=== PATIENT | male | born 1970 | race Two or more races ===

== ENCOUNTER 2024-11-26 21:49 | Inpatient (IN) | payer BC, SELFPAY ==
[2024-11-26 21:50] VITALS: BMI 29.5
[2024-11-26 22:13] VITALS: BP 145/82; PULSE 82; RESP 16; TEMP 37.7; O2SAT 98
--- NOTE | 2024-11-26 22:22 | XR_ITS ---
Examination: Abdomen sonogram, Limited Date and time of exam: November 26, 2024, 10:26 PM INDICATIONS: Epigastric pain beginning 2 days ago Technique: Real-time hinkle scale transabdominal sonographic images of the upper abdomen obtained. Findings: Gallbladder sludge and stones Gallbladder wall 0.5 cm Common bile duct 0.3 cm Pancreatic head 2.6 cm Liver 12.2 cm fatty infiltration Normal hepatopedal portal venous flow Patent IVC IMPRESSION: Acute calculus cholecystitis
--- NOTE | 2024-11-26 22:22 | XR_ITS ---
Examination: CT abdomen and pelvis without contrast. Coronal 3-D reconstructions. Sagittal 2-D reconstructions. Date and time of exam:November 26, 2024 10:52 PM Comparison April 03, 2018 INDICATIONS: Onset abdominal pain vomiting beginning 3 days ago. CTDI: vol (mGy): 8.35 DLP: (mGycm): 543 Technique: Axial images of the abdomen have been obtained, 3 mm slice thickness Intravenous contrast material has not been administered. Low dose protocols were performed. One or more of the following dose reduction techniques were used; automated exposure control, adjustment of the mA and/or KV according to patient size, use of iterative reconstruction technique. Findings: Gallstones, gallbladder wall appears thickened No splenic pancreatic or adrenal mass No renal or ureteral calculi No pericecal inflammatory change No bowel obstruction or diverticulitis No prostatomegaly Bladder intact IMPRESSION: Findings suspicious for acute calculus cholecystitis, consider HIDA scan or MRCP for confirmation
--- NOTE | 2024-11-26 22:23 | PD.EDABDPN ---
ED Abdominal Pain RME/HPI General Chief Complaint: Abdominal Pain Stated complaint: ABD PAIN, VOMITING X 3DAYS Time seen by provider: 11/26/24 22:21 Arrival date/time: 11/26/24 21:49 54M with history of HTN presents to ED with several days of RUQ/epigastric/flank pain and N/V. Possible dysuria, but no hematuria. No diarrhea. Limitations: no limitations Related Data Home Medications ?Medication ?Instructions ?Recorded ?Confirmed benazepril 10 mg tablet 1 tab PO QDAY 09/06/21 05/17/23 Previous Rx's ?Medication ?Instructions ?Recorded docusate sodium 100 mg capsule 100 mg PO BID #40 caps 05/18/23 (Colace) hydrocodone 7.5 mg-acetaminophen 1 tab PO Q8H PRN pain (scale score 05/18/23 325 mg tablet 7-10) #10 tabs ibuprofen 600 mg tablet 600 mg PO Q8H PRN pain (scale 05/18/23 score 4-6) #15 tabs Allergies Allergy/AdvReac Type Severity Reaction Status Date / Time No Known Allergies Allergy Verified 05/18/23 06:31 Review of Systems Review of Systems Systems Reviewed: All systems reviewed, normal except as documented Constitutional Constitutional: Reports system reviewed and no additional complaints, except as documented, Denies fever(s) and Denies headache(s) ENT Ears, Nose, Mouth, and Throat: Denies disequilibrium and Denies headache(s) Cardiovascular Cardiovascular: Reports system reviewed and no additional complaints, except as documented, Denies chest pain and Denies dyspnea Respiratory Respiratory: Reports system reviewed and no additional complaints, except as documented, Denies cough and Denies dyspnea Gastrointestinal Gastrointestinal: Reports system reviewed and no additional complaints, except as documented, Reports as per HPI, Reports abdominal pain, Reports nausea and Reports vomiting Genitourinary Genitourinary: Reports as per HPI and Reports dysuria Neurologic Neurologic: Reports system reviewed and no additional complaints, except as documented, Denies confusion, Denies disequilibrium and Denies headache(s) Psychiatric Psychiatric: Denies confusion Past Medical History Past Medical History NEUROLOGIC: Negative Neurological Disorders or Seizures CARDIAC: Positive Cardiac Disorders and Hypertension; Negative Congestive Heart Failure RESPIRATORY: Negative Chronic Obstructive Pulmonary Disease (COPD) or Asthma GASTROINTESTINAL: Positive Gastrointestinal Disorders and Hemorrhoids (SURGERY IN 2019); Negative Hepatitis or Colorectal Cancer GENITOURINARY: Negative Genitourinary Disorders, Renal Disease or Prostate Cancer REPRODUCTIVE: Negative Fibroids or Testicular Cancer MUSCULOSKELETAL: Negative Musculoskeletal Disorders, Bone Cancer or Carpal Tunnel Syndrome ENDOCRINE: Negative Endocrine Disorders, Diabetes Mellitus Type 1 or Diabetes Mellitus Type 2 HEMATOLOGIC: Negative Blood Disorders or Sickle Cell Disease OTHER HISTORY: Positive Chicken Pox, Measles and Mumps; Negative Hospitalization, Autoimmune Disease, Shingles, Falls, Blood Transfusions, Blood Transfusion Reaction, Anesthesia Reactions, Organ Transplant, MRSA, VRSA, Cancer, Colorectal Cancer, Lung Cancer, Prostate Cancer or Testicular Cancer Family History FAMILY HISTORY: Positive Family Cardiac Disorders (brother-hx of htn) and Family Cancer (PARENTS OF LUNG CA); Negative Family Psychiatric Problems, Family Respiratory Disorders, Family Gastrointestinal Problems, Family Surgery or Family Anesthesia Reaction Surgical History SURGICAL: Positive Abdominal Surgery; Negative Nephrectomy, Transurethral Resection, Joint Replacement, Amputation, Open Reduction Internal Fixation, Arthroscopy, Brain Shunt, Vasectomy or Organ Transplant Social History SMOKING STATUS: Never smoker ED Exam General Limitations: Present no limitations General appearance: Present alert and in no apparent distress Head Head exam: Present atraumatic Eye Eye exam: Present normal appearance, PERRL and EOMI ENT ENT exam: Present normal exam, normal oropharynx and mucous membranes moist Neck Neck exam: Present normal inspection, full ROM and trachea midline Chest Chest inspection: Present normal inspection and symmetric chest wall rise Respiratory Respiratory exam: Present normal lung sounds bilaterally Cardiovascular Cardiovascular exam: Present regular rate, normal rhythm and normal heart sounds Abdominal Exam Abdominal exam: Present soft and normal bowel sounds Abdominal tenderness: Present RUQ, epigastrium and mild Extremities Exam Extremities exam: Present normal inspection and full ROM Back Exam Back exam: Present normal inspection and full ROM Neurological Exam Neurological exam: Present alert, oriented X3 and CN II-XII intact Psychiatric Psychiatric exam: Present normal affect and normal mood Skin Skin exam: Present warm, dry, intact and normal color Course Quality Measures none Orders Category Date Time Status Admit to Inpatient Status Routine Admission 11/27/24 13:20 Active Insert IV NOW Care 11/26/24 23:58 Active MRI Screening NOW Care 11/26/24 23:59 Active NPO NOW Care 11/26/24 23:59 Active Consult to General Surgery Stat Cons 11/27/24 12:29 Ordered Diet NPO (NOW) Diet 11/26/24 23:[address] abdomen pelvis wo con Stat Exams 11/26/24 22:22 Completed MR MRCP Stat Exams 11/27/24 00:00 Completed US gall bladder Stat Exams 11/26/24 22:22 Completed Alcohol, Blood Medical Stat Lab 11/26/24 23:09 Completed Blood Culture (Lab) Stat Lab 11/27/24 13:10 Received CBC Stat Lab 11/26/24 23:09 Completed CMP [Comprehensive Metabolic Panel] Stat Lab 11/26/24 23:09 Completed Drug Screen,Urine Stat Lab 11/27/24 00:13 Completed Lactate (Lactic Acid) Stat Lab 11/26/24 23:09 Completed Lipase Stat Lab 11/26/24 23:09 Completed Procalcitonin Stat Lab 11/26/24 23:09 Completed Urinalysis, C/S if Indicated Stat Lab 11/27/24 00:13 Completed Morphine Inj Med 11/27/24 01:45 Discontinued 5 mg IVP Q4H PRN Ondansetron Inj [Zofran Inj] Med 11/27/24 01:45 Active 4 mg IV Q4H PRN Piper/Tazo 3.375 gm Premix [Zosyn] Med 11/26/24 23:58 Discontinued 3.375 gm in 50 ml IV X1 Piper/Tazo Inj [Zosyn Inj] 4.5 gm Med 11/27/24 12:29 Discontinued Sodium Chloride 0.9% (Pop) [NS 0.9% mini bag] 100 ml IV STAT Ringers Lactated 1000 ml [Lactated Ringers] 1,000 ml Med 11/26/24 23:59 Discontinued IV 999 mls/hr Vital Signs Vital signs: Vital Signs Temperature 100 F 11/26/24 22:13 Pulse Rate 82 11/26/24 22:13 Respiratory Rate 16 11/26/24 22:13 Blood Pressure 145/82 H 11/26/24 22:13 Pulse Oximetry (%) 98 11/26/24 22:13 Oxygen Delivery Method Room Air 11/26/24 22:13 O2 at 98% on RA and WNLs Abdominal Pain MDM MDM Narrative MDM Narrative:: 54M with history of HTN presents to ED with several days of RUQ/epigastric/flank pain and N/V. Possible dysuria, but no hematuria. No diarrhea. Physical exam reveals mild RUQ/epigastric tenderness. Patient is afebrile, calm, and alert. CT and US suggests acute calculus cholecystitis. CBD normal, but bili mildly elevated. LFTs and lipase normal. Moderate leukocytosis. Alcohol/tox screen neg. Care signed out to Dr. Watkins pending MRCP and dispo. MRCP no CBD stone. Patient eventually admitted for surgery. Patient data External records reviewed:: [facility] previous records Clinical information provided by:: patient Social determinants that could affect healthcare access:: none Patient has the following chronic illnesses:: HTN How is presenting disease/condition affected by chronic disease/condition?: uneffected by Evaluation data The following diagnostics were reviewed and interpreted by me:: lab results and radiology exam(s) Lab and/or radiology exams considered but not ordered:: ordered Interpretation Summary: above Medications / Prescriptions Medications or Prescriptions considered but not ordered:: ordered Medication administrations:: Medication Administration History Acetaminophen (Acetaminophen 325 Mg Tablet) 650 mg PO Q6H PRN PRN Reason: Fever >101.5 or pain 1-3 Stop: 12/27/24 14:24 Hydrocodone Bitart/Acetaminophen (Hydrocodone/Apap 5/325 Tablet) 1 tab PO Q4HR PRN PRN Reason: PAIN SCALE 4-6 (Moderate Stop: 12/02/24 13:45 Piperacillin/Tazobactam/Dextrose (Zosyn) 3.375 gm in 50 mls @ 12.5 mls/hr IV Q8HR AWILDA Stop: 12/04/24 21:59 Morphine Sulfate (Morphine Sulf Inj 10 Mg/Ml Vial) 2 mg IVP Q4HR PRN PRN Reason: PAIN SCALE 7-10 (Severe Stop: 12/02/24 13:45 Last Admin: 11/27/24 15:49 Dose: 2 mg Documented By: LEE Ondansetron HCl (Ondansetron Inj 2 Mg/Ml Inj 2 Ml) 4 mg IV Q4H PRN; Protocol PRN Reason: nausea/vomiting Stop: 12/27/24 01:44 Last Admin: 11/27/24 08:57 Dose: 4 mg Documented By: Admin: 11/27/24 02:03 Dose: 4 mg Documented By: LUCIO Discontinued Medications Piperacillin/Tazobactam/Dextrose (Zosyn) 3.375 gm in 50 mls @ 100 mls/hr IV X1 ONE Stop: 11/27/24 00:27 Last Infusion: 11/27/24 00:50 Dose: Infused Documented By: Admin: 11/27/24 00:19 Dose: 100 mls/hr Documented By: LUCIO Lactated Ringer's (Lactated Ringers) 1,000 mls @ 999 mls/hr IV .Q1H1M ONE Stop: 11/27/24 00:59 Last Infusion: 11/27/24 01:26 Dose: Infused Documented By: Admin: 11/27/24 00:19 Dose: 999 mls/hr Documented By: LUCIO Piperacillin Sod/Tazobactam (Sod 4.5 gm/ Sodium Chloride) 100 mls @ 200 mls/hr IV STAT STA Stop: 11/27/24 12:58 Last Infusion: 11/27/24 13:52 Dose: Infused Documented By: Admin: 11/27/24 13:18 Dose: 200 mls/hr Documented By: HILLARY Morphine Sulfate (Morphine Sulf Inj 10 Mg/Ml Vial) 5 mg IVP Q4H PRN PRN Reason: pain 4-6 Stop: 12/02/24 01:44 Last Admin: 11/27/24 08:58 Dose: 5 mg Documented By: Admin: 11/27/24 02:03 Dose: 5 mg Documented By: LUCIO Morphine Sulfate (Morphine Sulf Inj 10 Mg/Ml Vial) 2 mg IVP Q4HR PRN PRN Reason: PAIN SCALE 4-10(Mod-Sev Stop: 12/02/24 13:45 above Consultations Consultation(s) initiated? (list below): Yes Diagnosis Differential diagnosis abdominal pain: abdominal pain, acute appendicitis, calculus of kidney, constipation, diverticulitis, gastroenteritis, pancreatitis, small bowel obstruction and other (biliary disease) Most likely diagnosis given after review of the tests above:: cholecystitis Admission Indicated Admission indicated?: indicated Admission Request Was there a request for admission?: Yes Admission Attestation Admission request attestation: Discussed case with [] from Hospitalist service regarding admission. Discussed patients ED course, exam findings, labs, and radiology results. The Hospitalist [agrees,declines] to accept the patient for admission. Disposition Plan Disposition Plan: Admit Discharge Plan Plan Patient Disposition: Admit Acute Care w/in Hospital Problem List Clinical Impression: Acute calculous cholecystitis
[2024-11-26 23:15] LABS: Lactate (Lactic Acid) 1.0 mMol/L (0.4-2.0)
[2024-11-26 23:16] LABS: Basophils # (Auto) 0.0 Thou/mm3 (0.0-0.2); Basophils % (Auto) 0 % (0-2.5); Eosinophils # (Auto) 0.1 Thou/mm3 (0.0-0.5); Eosinophils % (Auto) 1 % (0-10); Hematocrit 45.0 % (41.0-53.0); Hemoglobin 16.0 g/dL (13.5-16.0); Immature Granulocytes Auto 0.11 Thou/mm3 (0.00-0.00); Lymphocytes # (Auto) 2.5 Thou/mm3 (1.0-4.8); Lymphocytes % (Auto) 16 % (10-50); Mean Corpuscular HGB Conc 35.6 g/dl (31.0-37.0); Mean Corpuscular Hemoglobin 30.5 pg (25.0-35.0); Mean Corpuscular Volume 86 fL (80-100); Monocytes # (Auto) 1.6 Thou/mm3 (0.0-0.8); Monocytes % (Auto) 10 % (0-12); Neutrophils # (Auto) 11.1 Thou/mm3 (1.8-7.7); Neutrophils % (Auto) 72 % (37-80); Nucleated Red Blood Cell # 0.00 Thou/mm3 (0.00-0.00); Nucleated Red Blood Cell % 0 /100 WBC (0); Platelet Count 230 Thou/mm3 (140-440); RDW Standard Deviation 38.1 fL (35.1-43.9); Red Blood Count 5.25 Miln/mm3 (4.50-5.90); White Blood Count 15.4 Thou/mm3 (3.8-10.6)
[2024-11-26 23:55] LABS: Alanine Aminotransferase 42 U/L (10-49); Albumin, Serum 4.7 gm/dL (3.5-5.0); Albumin/Globulin Ratio 1.6 (1.2-2.2); Alcohol, Blood Medical < 3.0 mg/dL (0-10.0); Alkaline Phosphatase 98 U/L (46-116); Anion Gap 11 (7-16); Aspartate Amino Transferase 23 U/L (0-34); BUN/Creatinine Ratio 12 Ratio (12-20); Bilirubin,Total 1.4 mg/dL (0.3-1.2); Blood Urea Nitrogen 12 mg/dL (9-23); Calcium 9.9 mg/dL (8.3-10.6); Calcium (Corrected) 9.9 mg/dL (8.5-10.1); Carbon Dioxide 25.5 mMol/L (20.0-31.0); Chloride 101 mMol/L (98-107); Creatinine (Component) 1.0 mg/dL (0.6-1.3); Estimated Creatinine Clearance 85.4 mL/min (>60); Globulin 3.0 gm/dL (2.3-3.5); Glucose 123 mg/dL (74-106); Lipase 36 U/L (12-53); Osmolality,Calculated 274 (275-295); Potassium 3.5 mMol/L (3.4-5.1); Procalcitonin 0.13 ng/ml (0.0-0.49); Sodium 137 mMol/L (136-145); Total Protein 7.7 gm/dL (5.7-8.2); eGFR > 60 See Note
--- NOTE | 2024-11-27 | XR_ITS ---
MRI abdomen, without contrast. MRCP Date and time of exam: November 27, 2024, 0823 hrs. Indications: Epigastric pain nausea vomiting beginning yesterday Technique: Multiple axial and coronal images of the abdomen have been obtained with the Siemens 1.5T MRI scanner. Images obtained included T1 weighted transverse images, T2-weighted transverse images, T2-weighted transverse images fat-suppressed, T2 weighted haste fat suppressed transverse images, T1 weighted images, in and out of phase images, T2-weighted coronal images, breath hold, T2 weighted haze coronal images as well as T2 weighted coronal thick slab images, MRCP. Findings: No focal liver lesions. Gallbladder wall is thickened with edema. Small gallstones. Common hepatic duct common bile duct are not enlarged no stones. No pancreatitis. Spleen is not enlarged. No hydronephrosis No ascites Impression: Acute calculus cholecystitis
[2024-11-27] MEDS: PIPER/TAZO 3.375 GM PREMIX 3.375 GM/50 ML BAG IV ×2 (00:19→21:23)
[2024-11-27] MEDS: RINGERS LACTATED 1000 ML 1,000 ML 999 ML IV (00:19)
[2024-11-27 00:23] VITALS: BP 125/84; PULSE 83; RESP 16; TEMP 36.9; O2SAT 95
[2024-11-27 00:58] LABS: Collection Type, Urine Clean Catch; Squamous Epithelial Cell,Urine 0 /hpf (0-5)
[2024-11-27 01:12] LABS: Amphetamine/Methamp Scrn,U Negative (Negative); Barbiturate Screen,Urine Negative (Negative); Benzodiazepines Screen,Urine Negative (Negative); Benzoylecgonine Screen, Ur Negative (Negative); Fentanyl Screen,Urine Negative (Negative); Opiate Screen,Urine Negative (Negative); THC Screen,Urine Negative (Negative)
[2024-11-27 01:18] LABS: Bacteria,Urine Rare; Bilirubin,Urine Negative (Negative); Blood,Urine 1+ (Negative); Clarity,Urine Clear (Clear/Hazy); Color,Urine Yellow (Lt Yel-Yel); Culture Indicated,Urine Not Indicated; Glucose, Urine Negative (Negative); Ketones,Urine 2+ (Negative); Leukocyte Esterase,Urine Negative (Negative); Nitrite,Urine Negative (Negative); PH,Urine 6.0 (5.0-7.0); Protein,Urine Trace (Neg - Trace); RBC,Urine 5 /hpf (0-3); Specific Gravity,Urine 1.031 (1.001-1.035); Urobilinogen,Urine Negative mg/dL (0.0-1.0); WBC,Urine 2 /hpf (0-5)
[2024-11-27] MEDS: MORPHINE SULF INJ 10 MG/ML VIAL 5 MG IVP ×2 (02:03→08:58)
[2024-11-27] MEDS: ONDANSETRON INJ 2 MG/ML INJ 2 ML 4 MG IV ×3 (02:03→21:22)
[2024-11-27 04:11] VITALS: BP 134/70; PULSE 64; RESP 16; TEMP 36.8; O2SAT 96
--- NOTE | 2024-11-27 08:20 | PC.NURSE ---
PT TAKEN TO MRI.
[2024-11-27 08:53] VITALS: BP 128/82; PULSE 76; RESP 16; TEMP 36.7; O2SAT 95
--- NOTE | 2024-11-27 12:37 | PRELIM_ITS ---
MR Cholangiopancreatography without intravenous contrast November 27, 2024 0823 hours Clinical History: RUQ/epigastric pain and elevated bili. No prior study is available for comparison. Findings: Mild gallbladder wall thickening with pericholecystic fluid. The common bile duct is normal in caliber, measuring 5.3 mm without evidence of intraluminal calculus/stricture. The pancreatic duct is not dilated. There is no evidence of intrahepatic biliary duct dilatation. 3 mm hepatic cyst. 1 cm right renal cyst. The pancreas, spleen, left kidney and adrenals appear unremarkable. The lung bases are clear. Impression: Findings suggestive of acute cholecystitis. Other findings as described above. Report Electronically Signed By: Terence Ibarra 11/27/2024 12:36:49 PM [EST]
[2024-11-27] MEDS: PIPER/TAZO INJ 4.5 GM in SODIUM CHLORIDE 0.9% (POP) 100 ML IV (13:18)
--- NOTE | 2024-11-27 13:22 | PD.SURCONS ---
HPI Consult details Consult date: 11/27/24 Reason for consultation narrative: Abdominal pain History of present illness: 54-year-old male with history of hypertension presenting to the emergency department with 3 days history of abdominal pain. His pain is in the right upper quadrant and epigastric area radiating to his back. The pain was initially intermittent, however since yesterday his pain has been getting progressively worse. He has had nausea and vomiting, but denies fever, chills, jaundice or discoloration of urine or stool. He denies having similar symptoms in the past. He was noted to have elevated WBC. Abdominal ultrasound, CT scan and MRCP findings were consistent with cholelithiasis with acute cholecystitis. Review of Systems Constitutional Constitutional: Denies chills, Denies fever(s) and Denies headache(s) ENT Ears, Nose, Mouth, and Throat: Denies headache(s) Cardiovascular Cardiovascular: Denies chest pain Respiratory Respiratory: Denies cough Gastrointestinal Gastrointestinal: Reports abdominal pain, Reports nausea and Reports vomiting Genitourinary Genitourinary: Denies difficulty urinating Musculoskeletal Musculoskeletal: Reports back pain Neurologic Neurologic: Denies headache(s) Hematologic/Lymphatic Hematologic/Lymphatic: Denies easy bleeding and Denies easy bruising Past Medical History Surgical History OTHER SURGICAL HX: Hemorrhoidectomy, left inguinal hernia repair, and excision of perianal warts Meds Home Medications and Allergies Home Medications ?Medication ?Instructions ?Recorded ?Confirmed ?Type No Known Home Medications 11/27/24 11/27/24 History Allergies Allergy/AdvReac Type Severity Reaction Status Date / Time No Known Allergies Allergy Verified 11/27/24 20:05 Exam Vital Signs Temp Pulse Resp BP Pulse Ox O2 Del Method 98.1 F 76 16 128/82 95 Room Air 11/27/24 08:53 11/27/24 08:53 11/27/24 08:53 11/27/24 08:53 11/27/24 08:53 11/27/24 08:53 Constitutional Constitutional: no acute distress Routine HEENT Exam Eye: Present PERRL (Anicteric sclera) Routine Abdominal Exam Comments: Abdomen is soft and nondistended. He has right upper quadrant tenderness to palpation with guarding, positive Rob sign Results Results: Laboratory Laboratory results: results reviewed Results: Imaging Imaging narrative: Abdominal ultrasound, CT scan of abdomen pelvis and MRCP images reviewed, radiologist interpretation noted Assessment & Plan Problem List (1) Calculus of gallbladder with acute cholecystitis without obstruction: Status: Acute Plan Keep n.p.o. with IV fluids and IV antibiotics and plan for laparoscopic possible open cholecystectomy. Risks include but not limited to infection, bleeding, injury to bowel, liver, stomach, bile duct, retained stone, bile leak, abdominal sepsis and or abdominal abscess, need for further procedure and or operation discussed with the patient and his . Benefits alternatives explained to them, all their questions answered, they agreed and consented to proceed with the operation.
--- NOTE | 2024-11-27 14:06 | ESHP_ITS ---
<Statement entered by Jenny Brooks MD - 11/28/24 08:44> I attest that I was physically present for the evaluation, physical examination, lab and imaging review of the patient with the residents. I discussed the case with the residents and agree with the findings and plans of care as documented below. After examination of the patient and review of the clinical data I feel that this patient needs admission to the hospital for further treatment/evaluation. Jenny Brooks MD <Statement entered by Karyn Walker MD - 11/27/24 18:35> Mr. Bojorquez is 54 y/o M PMH of recently diagnosed HTN presented to the ED complaining severe abdominal pain. Pt states his pain was severe and 1 episode of non bloody emesis but no fever, diarrhea/constipation. Pt is started on zosyn, consulted general surgery and pain control PRN is ordered. Patient was seen and examined by me personally. I have directly supervised and reviewed documentation by the team resident and agree with its findings. ------- Plan of care was discussed with the attending, Dr. Todd Walker, PGY-2 Documentation for date of: 11/27/24 HPI History of Present Illness Chief complaint: RUQ and epigastric abdominal pain History of present illness: Mr. Bojorquez is a 54 year old male with a history of HTN and perianal warts who presented to [facility] ED on 11/27 for RUQ and epigastric abdominal pain. The patient was admitted for acute cholecystitis. The patient stated that his started on Thursday 11/23 of the sudden, burning pain involving his epigastric and right upper quadrant abdominal area that is a consistent 9 out of 10 throughout the entire day. Eating does seem to make it worse, but the patient has not tried any particular medications to help with the pain. The patient endorsed vomiting on Monday. On 11/27, the patient decided to seek help at [facility] ED as the pain was not going away. ED Course: Initial vitals were significant for blood pressure of 145/82. Labs were significant for WBC 15.[address] abdomen/pelvis suspicious for acute calculus cholecystitis. Gallbladder US showed acute calculus cholecystitis. MRCP showed acute calculus cholecystitis. ED physicians consulted general surgery, Dr. Correa, who plans for laparoscopic cholecystectomy. Past Surgical History: Abdominal hernia repair and perianal wart excision Current Medication(s): Patient states that he takes a single antihypertensive medication, but the patient is not sure what medication that is. Per med refills, this medication was most likely benazepril 10 mg daily. Allergies (w/ Reactions): NKDA Family History: Mother has hypertension. Father has no medical history. Patient has no siblings. 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 Skin: Warm, dry, intact. Head: Normocephalic, atraumatic. Eye: Normal conjunctiva, PERRL. Throat: Oral mucosa moist. No obvious lesions in oropharynx. Cardiovascular: Regular rate and rhythm, no murmur, +S1/S2. Respiratory: Lungs are clear to auscultation, respirations unlabored, no crackles, no wheezing. Gastrointestinal: Soft, RUQ tender to palpation, non-distended. No guarding or rebound tenderness. Extremities: No edema, no cyanosis, no clubbing. Neuro: No focal deficits observed. Conversant, moving all extremities. No overt cerebellar signs/incoordination. Psychiatric: Cooperative, appropriate affect. Results: Labs 11/26/24 23:09 11/26/24 23:09 Labs: Short CBC 11/26/24 Range/Units 23:09 WBC 15.4 H (3.8-10.6) Thou/mm3 Hgb 16.0 (13.5-16.0) g/dL Hct 45.0 (41.0-53.0) % Plt Count 230 (140-440) Thou/mm3 BMP 11/26/24 23:09 Sodium 137 Potassium 3.5 Chloride 101 Carbon Dioxide 25.5 BUN 12 Creatinine 1.0 Glucose 123 H Calcium 9.9 Liver Function 11/26/24 Range/Units 23:09 Total Bilirubin 1.4 H (0.3-1.2) mg/dL AST 23 (0-34) U/L ALT 42 (10-49) U/L Alkaline Phosphatase 98 (46-116) U/L Albumin 4.7 (3.5-5.0) gm/dL Urine 11/27/24 Range/Units 00:13 Urine Color Yellow (Lt Yel-Yel) Urine Clarity Clear (Clear/Hazy) Urine pH 6.0 (5.0-7.0) Ur Specific [place] 1.031 (1.001-1.035) Urine Protein Trace (Neg - Trace) Urine Glucose (UA) Negative (Negative) Quality Measures Quality Measures none Medications Home Medications and Allergies Home Medications ?Medication ?Instructions ?Recorded ?Confirmed ?Type benazepril 10 mg tablet 1 tab PO QDAY 09/06/2105/17 History Allergies Allergy/AdvReac Type Severity Reaction Status Date / Time No Known Allergies Allergy Verified 05/18/23 06:31 Visit Medications Hydrocodone Bitart/Acetaminophen (Hydrocodone/Apap 5/325 Tablet) 1 tab PO Q4HR PRN PRN Reason: PAIN SCALE 4-6 (Moderate Stop: 12/02/24 13:45 Piperacillin/Tazobactam/Dextrose (Zosyn) 3.375 gm in 50 mls @ 12.5 mls/hr IV Q8HR AWILDA Stop: 12/04/24 21:59 Morphine Sulfate (Morphine Sulf Inj 10 Mg/Ml Vial) 2 mg IVP Q4HR PRN PRN Reason: PAIN SCALE 7-10 (Severe Stop: 12/02/24 13:45 Ondansetron HCl (Ondansetron Inj 2 Mg/Ml Inj 2 Ml) 4 mg IV Q4H PRN; Protocol PRN Reason: nausea/vomiting Stop: 12/27/24 01:44 Last Admin: 11/27/24 08:57 Dose: 4 mg Discontinued Medications Piperacillin/Tazobactam/Dextrose (Zosyn) 3.375 gm in 50 mls @ 100 mls/hr IV X1 ONE Stop: 11/27/24 00:27 Last Infusion: 11/27/24 00:50 Dose: Infused Lactated Ringer's (Lactated Ringers) 1,000 mls @ 999 mls/hr IV .Q1H1M ONE Stop: 11/27/24 00:59 Last Infusion: 11/27/24 01:26 Dose: Infused Piperacillin Sod/Tazobactam (Sod 4.5 gm/ Sodium Chloride) 100 mls @ 200 mls/hr IV STAT STA Stop: 11/27/24 12:58 Last Infusion: 11/27/24 13:52 Dose: Infused Morphine Sulfate (Morphine Sulf Inj 10 Mg/Ml Vial) 5 mg IVP Q4H PRN PRN Reason: pain 4-6 Stop: 12/02/24 01:44 Last Admin: 11/27/24 08:58 Dose: 5 mg Morphine Sulfate (Morphine Sulf Inj 10 Mg/Ml Vial) 2 mg IVP Q4HR PRN PRN Reason: PAIN SCALE 4-10(Mod-Sev Stop: 12/02/24 13:45 Assessment & Plan Plan Mr. Bojorquez is a 54 year old male with a history of HTN and perianal warts who presented to [facility] ED on 11/27 for RUQ and epigastric abdominal pain. The patient was admitted for acute cholecystitis. #Acute calculus cholecystitis #RUQ abdominal pain Patient had acute onset of RUQ and epigastric abdominal pain that started on 11/23. CT abdomen/pelvis, gallbladder ultrasound, and MRCP were all positive for calculus cholecystitis. General surgery was consulted in ED, who plans for laparoscopic cholecystectomy. - n.p.o. now - Zosyn 3.375 g every 8 hours (11/27--) - Blood cultures collected 11/27, pending - Acetaminophen, [place] 1 tab every 4 hours as needed, and morphine 2 mg every 4 hours as needed for pain management - General surgery consulted, plans for laparoscopic cholecystectomy - Zofran 4mg every 4 hours as needed for N/V #Primary hypertension Patient has a history of hypertension. He takes a single antihypertensive medication for management of his hypertension. Patient had a blood pressure of 145/82 in ED on initial vitals. - Will continue to monitor, will start on antihypertensive if BP is persistently elevated DVT Prophylaxis: SCDs GI Prophylaxis: N/A Bowel: N/A Diet: NPO Ravi: N/A Lines: Peripheral IV Antibiotics: Zosyn (11/27--) Code Status: FULL Reason for Hospitalization: Acute calculus cholecystitis Other Barriers to Discharge: Cholecystectomy Patient plan of care was discussed with the senior resident Dr. Walker and attending physician Dr. Todd Cameron, PGY1
[2024-11-27] MEDS: MORPHINE SULF INJ 10 MG/ML VIAL 2 MG IVP ×3 (15:49→23:23)
[2024-11-27 16:31] VITALS: BMI 29.5
[2024-11-27] MEDS: HYDROcodone/APAP 5/325 TABLET 1 TAB PO ×2 (18:25→23:07)
[2024-11-27] MEDS: RINGERS LACTATED 1000 ML 1,000 ML 75 ML IV (19:25)
--- NOTE | 2024-11-27 19:56 | PC.NURSE ---
seen and examined by Dr. Correa, family at bedside.
[2024-11-27 20:00] VITALS: BP 145/89; PULSE 65; RESP 16; TEMP 36.3; O2SAT 97
[2024-11-27 21:38] VITALS: PULSE 66; RESP 18; RESP 98
[2024-11-28] VITALS (12 sets, daily range): BP systolic 116–147; BP diastolic 72–94; PULSE 69–104; RESP 18–99; TEMP 36.1–37; O2SAT 92–98
[2024-11-28] MEDS: MORPHINE SULF INJ 10 MG/ML VIAL 2 MG IVP ×2 (04:28→08:27)
[2024-11-28 06:39] LABS: Basophils # (Auto) 0.0 Thou/mm3 (0.0-0.2); Basophils % (Auto) 0 % (0-2.5); Eosinophils # (Auto) 0.0 Thou/mm3 (0.0-0.5); Eosinophils % (Auto) 0 % (0-10); Hematocrit 43.5 % (41.0-53.0); Hemoglobin 15.5 g/dL (13.5-16.0); Immature Granulocytes Auto 0.10 Thou/mm3 (0.00-0.00); Lymphocytes # (Auto) 1.0 Thou/mm3 (1.0-4.8); Lymphocytes % (Auto) 5 % (10-50); Mean Corpuscular HGB Conc 35.6 g/dl (31.0-37.0); Mean Corpuscular Hemoglobin 30.5 pg (25.0-35.0); Mean Corpuscular Volume 86 fL (80-100); Monocytes # (Auto) 1.8 Thou/mm3 (0.0-0.8); Monocytes % (Auto) 9 % (0-12); Neutrophils # (Auto) 16.0 Thou/mm3 (1.8-7.7); Neutrophils % (Auto) 85 % (37-80); Nucleated Red Blood Cell # 0.00 Thou/mm3 (0.00-0.00); Nucleated Red Blood Cell % 0 /100 WBC (0); Platelet Count 253 Thou/mm3 (140-440); RDW Standard Deviation 36.5 fL (35.1-43.9); Red Blood Count 5.09 Miln/mm3 (4.50-5.90); White Blood Count 18.8 Thou/mm3 (3.8-10.6)
[2024-11-28] MEDS: PIPER/TAZO 3.375 GM PREMIX 3.375 GM/50 ML BAG IV ×3 (06:45→21:11)
[2024-11-28 07:02] LABS: Alanine Aminotransferase 69 U/L (10-49); Albumin, Serum 4.3 gm/dL (3.5-5.0); Albumin/Globulin Ratio 1.5 (1.2-2.2); Alkaline Phosphatase 106 U/L (46-116); Anion Gap 12 (7-16); Aspartate Amino Transferase 36 U/L (0-34); BUN/Creatinine Ratio 14 Ratio (12-20); Bilirubin,Total 1.9 mg/dL (0.3-1.2); Blood Urea Nitrogen 11 mg/dL (9-23); Calcium 10.0 mg/dL (8.3-10.6); Calcium (Corrected) 10.0 mg/dL (8.5-10.1); Carbon Dioxide 25.1 mMol/L (20.0-31.0); Chloride 99 mMol/L (98-107); Creatinine (Component) 0.8 mg/dL (0.6-1.3); Estimated Creatinine Clearance 106.7 mL/min (>60); Globulin 2.9 gm/dL (2.3-3.5); Glucose 139 mg/dL (74-106); Magnesium 1.9 mg/dL (1.6-2.6); Osmolality,Calculated 273 (275-295); Potassium 3.7 mMol/L (3.4-5.1); Sodium 136 mMol/L (136-145); Total Protein 7.2 gm/dL (5.7-8.2); eGFR > 60 See Note
[2024-11-28 07:19] LABS: INR 1.1 (0.9-1.3); Partial Thromboplastin Time 26.7 Seconds (22.0-36.0); Prothrombin Time 11.9 Seconds (9.0-12.2)
[2024-11-28] MEDS: RINGERS LACTATED 1000 ML 1,000 ML 75 ML IV (10:43)
--- NOTE | 2024-11-28 11:24 | PC.SS ---
Esdras Bojorquez is a year-old male admitted to [facility] for Acute Chanda. SS conducted bedside contact with the patient to complete initial assessment and to discuss discharge planning. Role and reason explained. Patient confirmed demographic information. Patient identifies his Poppy Sanchez [phone] as his surrogate decision maker. Pt states he is able to complete all ADL?s independent. Pt does not possesses any DME. Pts PCP is Conchis Purvis unsure of name. Pharmacy of choice is [facility]. Discharge options discussed and the pt wishes to return home.? Pt will provide transport. No further intervention required at this time, social security specialist would be available to address any further concerns. DC Plan: Home Contact: Pete Address: Confirmed on face sheet PCP: Conchis Purvis
--- NOTE | 2024-11-28 11:48 | ESPR_ITS ---
<Statement entered by Jenny Brooks MD - 11/28/24 22:24> I attest that I was physically present for the evaluation, physical examination, lab and imaging review of the patient with the residents. I discussed the case with the residents and agree with the findings and plans of care as documented above. At bedside this morning, patient had worsening abdominal pain. He also had worsening WBC count. Underwent Laproscopic cholecystectomy with general surgery. Started on Clear liquid diet following the surgery. We will advance his diet slowly. Anticipate discharge in next 24 hrs if remains stable. Jenny Brooks MD <Statement entered by Karyn Walker MD - 11/28/24 18:23> Pt is seen at bedside, continues to have abdominal pain but does endorse to have some improvement, still requiring IV pain medications. Pt also is having regular bowel movement. later in the afternoon pt underwent lap Cholecystecomy with Dr. Correa, pt is started on clear liquid diet. Will advance as pt is able to tolerate. Patient was seen and examined by me personally. I have directly supervised and reviewed documentation by the team resident and agree with its findings. ------- Plan of care was discussed with the attending, Dr. Todd Walker, PGY-2 Documentation for date of: 11/28/24 Subjective Subjective Interval history: Overnight events: No acute events overnight. Patient was seen and examined at bedside. AM vitals and labs reviewed. Patient states that pain is worse in the AM. Pending cholecystectomy. WBC elevated to 18.8, bilirubin increased to 1.9, AST and ALT increased to 36 and 69 respectively. Pending cholecystectomy today. Renewed LR maintenance at 75 cc/h. Review of systems otherwise negative except for what is mentioned above. Exam Vital Signs Temp Pulse Resp BP Pulse Ox O2 Del Method O2 Flow Rate 98.2 F 94 19 138/87 H 92 L Room Air 3 11/28/24 13:23 11/28/24 13:23 11/28/24 13:23 11/28/24 13:23 11/28/24 13:23 11/28/24 08:00 11/28/24 13:13 Narrative Exam Physical Exam: General: Alert, mildly distressed. Skin: Warm, dry, intact. Head: Normocephalic, atraumatic. Eye: Normal conjunctiva, PERRL. Cardiovascular: Regular rate and rhythm, no murmur, +S1/S2. Respiratory: Lungs are clear to auscultation, respirations unlabored, no crackles, no wheezing. Gastrointestinal: Soft, RUQ tender to palpation, non-distended. No guarding or rebound tenderness. Extremities: No edema, no cyanosis, no clubbing. Neuro: No focal deficits observed. Conversant, moving all extremities. No overt cerebellar signs/incoordination. Psychiatric: Cooperative, appropriate affect. Objective Labs 11/28/24 05:50 11/28/24 05:50 Labs: Laboratory Results - last 24 hr 11/28/24 05:50 WBC 18.8 H RBC 5.09 Hgb 15.5 Hct 43.5 MCV 86 MCH 30.5 MCHC 35.6 RDW Std Deviation 36.5 Plt Count 253 Neut % (Auto) 85 H Lymph % (Auto) 5 L [place] % (Auto) 9 Eos % (Auto) 0 Baso % (Auto) 0 Neut # (Auto) 16.0 H Lymph # (Auto) 1.0 [place] # (Auto) 1.8 H Eos # (Auto) 0.0 Baso # (Auto) 0.0 Immature Gran # (Auto) 0.10 H Absolute Nucleated RBC 0.00 Immature Gran % 1 H Nucleated RBC % 0 PT 11.9 INR 1.1 APTT 26.7 Sodium 136 Potassium 3.7 Chloride 99 Carbon Dioxide 25.1 Anion Gap 12 BUN 11 Creatinine 0.8 Estim Creat Clear Calc 106.7 eGFR > 60 BUN/Creatinine Ratio 14 Glucose 139 H Calculated Osmolality 273 L Calcium 10.0 Corrected Calcium 10.0 Magnesium 1.9 Total Bilirubin 1.9 H D AST 36 H ALT 69 H Alkaline Phosphatase 106 Total Protein 7.2 Albumin 4.3 Globulin 2.9 Albumin/Globulin Ratio 1.5 Quality Measures Quality Measures VTE prophylaxis Assessment & Plan Assessment Current Active Medications: Generic Name Dose Route Start Last Admin Trade Name Freq PRN Reason Stop Dose Admin Acetaminophen 650 mg 11/27/24 14:25 Acetaminophen 325 Mg Tablet PO 12/27/24 14:24 Q6H PRN Fever >101.5 or pain 1-3 Hydrocodone Bitart/Acetaminophen 1 tab 11/27/24 13:46 11/27/24 23:07 Hydrocodone/Apap 5/325 Tablet PO 12/02/24 13:45 1 tab Q4HR PRN Administration PAIN SCALE 4-6 (Moderate Fentanyl Citrate 25 mcg 11/28/24 12:28 Fentanyl Cit Inj 50 Mcg/Ml Amp 2ml IVP 11/28/24 14:32 Q5M PRN PAIN SCALE 1-3 (mild Fentanyl Citrate 25 mcg 11/28/24 12:28 Fentanyl Cit Inj 50 Mcg/Ml Amp 2ml IVP 11/28/24 14:32 Q5M PRN PAIN SCALE 4-6 (Moderate Hydromorphone HCl 0.4 mg 11/28/24 12:28 Hydromorphone Inj 2 Mg/Ml Vial IVP 11/28/24 14:32 Q5M PRN PAIN SCALE 7-10 (Severe Piperacillin/Tazobactam/Dextrose 3.375 gm in 50 mls @ 12.5 mls/hr 11/27/24 22:00 11/28/24 06:45 Zosyn IV 12/04/24 21:59 12.5 mls/hr Q8HR AWILDA Administration Lactated Ringer's 1,000 mls @ 75 mls/hr 11/28/24 08:31 11/28/24 10:43 Lactated Ringers IV 12/28/24 08:30 75 mls/hr .[id number] AWILDA Administration Morphine Sulfate 2 mg 11/27/24 13:49 11/28/24 08:27 Morphine Sulf Inj 10 Mg/Ml Vial IVP 12/02/24 13:45 2 mg Q4HR PRN Administration PAIN SCALE 7-10 (Severe Ondansetron HCl 4 mg 11/27/24 01:45 11/27/24 21:22 Ondansetron Inj 2 Mg/Ml Inj 2 Ml IV 12/27/24 01:44 4 mg Q4H PRN Administration nausea/vomiting Protocol Plan Mr. Bojorquez is a 54 year old male with a history of HTN and perianal warts who presented to [facility] ED on 11/27 for RUQ and epigastric abdominal pain. The patient was admitted for acute cholecystitis. #Acute calculus cholecystitis #RUQ abdominal pain Patient had acute onset of RUQ and epigastric abdominal pain that started on 11/23. CT abdomen/pelvis, gallbladder ultrasound, and MRCP were all positive for calculus cholecystitis. General surgery was consulted in ED, who plans for laparoscopic cholecystectomy. - n.p.o. - Zosyn 3.375 g every 8 hours (11/27--) - Blood cultures collected 11/27, pending - Acetaminophen, [place] 1 tab every 4 hours as needed, and morphine 2 mg every 4 hours as needed for pain management - General surgery consulted, plans for laparoscopic cholecystectomy - Zofran 4mg every 4 hours as needed for N/V - LR maintenance fluid 75 cc/hr #Primary hypertension Patient has a history of hypertension. He takes a single antihypertensive medication for management of his hypertension. Patient had a blood pressure of 145/82 in ED on initial vitals. - Will continue to monitor, will start on antihypertensive if BP is persistently elevated DVT Prophylaxis: SCDs GI Prophylaxis: N/A Bowel: N/A Diet: NPO Ravi: N/A Lines: Peripheral IV Antibiotics: Zosyn (11/27--) Code Status: FULL Reason for Hospitalization: Acute calculus cholecystitis Other Barriers to Discharge: Cholecystectomy Patient plan of care was discussed with the senior resident Dr. Walker and attending physician Dr. Todd Cameron, PGY1
--- NOTE | 2024-11-28 13:02 | PD.SUROPNT ---
Date of Procedure 11/28/24 Pre Op Diagnosis Cholelithiasis with acute cholecystitis Post Op Diagnosis Cholelithiasis with acute gangrenous cholecystitis Procedure Laparoscopic cholecystectomy Findings Distended, tense thick-walled and gangrenous gallbladder Procedure Description Patient was brought into the operating room in supine position. After administration of general endotracheal anesthesia abdomen was prepped and draped in standard surgical manner. A Veress needle was inserted through the umbilicus and pneumoperitoneum was obtained up to 15 mmHg. The Veress needle was then removed, a 5 mm infraumbilical incision was made and the 5mm trocar was inserted. Laparoscopic camera was placed. Under direct visualization a laparoscopic camera a 10 mm trocar was placed in subxiphoid and two 5 mm trocars placed in right upper quadrant. The anterior surface of the liver was smooth without nodules or any lesions. Omentum was adherent into the inferior aspect of the gallbladder and liver. The omentum was retracted caudally. The gallbladder was identified and was noted to be tense, thick-walled and gangrenous in appearance. The gallbladder was decompressed with an aspirator. It was retracted cephalad and laterally. Dissection started near the infundibulum of gallbladder where cystic duct and gallbladder junction clearly identified. The cystic duct was circumferentially dissected off the peritoneum and surrounding inflammatory tissue. The critical view of safety was clearly demonstrated. Cystic duct was then divided between 2 endoclips proximally and one distally. The cystic artery was similarly dissected and divided. The gallbladder was then from the liver bed using electrocautery. The gallbladder was then placed inside an Endo Catch and removed from the abdomen utilizing subxiphoid trocar site. The area was copiously and thoroughly washed and irrigated, all the fluid was suctioned and the suction fluid returned clear. Hemostasis achieved using electrocautery, also topical hemostatic agent using snow Surgicel placed at the gallbladder fossa to further assure hemostasis. Endoclips noted be in place and intact without any bleeding or any leakage. Hemostasis was adequate and satisfactory. A 19 [place] Lisandro-Omer drain placed at the gallbladder fossa and the drain was brought out of the medial right upper quadrant 5 mm trocar site. Drain was secured with 2-0 nylon. The subxiphoid trocar sites fascial defect was closed with 0 Vicryl using Endo Closure device. Instruments and trocars removed, pneumoperitoneum was evacuated and the incisions closed with 4-0 Monocryl in subcuticular fashion. Instrument needle and sponge counts were all reported to be correct X2. Patient tolerated the procedure well, was extubated, breathing spontaneously and without difficulty and was transferred to postanesthesia care in stable condition. Anesthesia GETA and local Drains ZE drain x 1 Pathology / specimen Other (Gallbladder and contents) Estimated Blood Loss 50 Condition Stable Disposition PACU Surgeon Alicia Correa MD Surgical Staff Operation Date: 11/28/24 13:45 Case Staff INDUSTRIAL DESIGN ENGINEER: Forrest Telles RN First Assistant: Amparo Lauren
--- NOTE | 2024-11-28 13:08 | SUR.PHASEI ---
1308: Pt. AAOx4, vitals stable, breathing unlabored, no complaint of pain or nausea, x3 dermabond sites to ABD CDI, ZE Drain in place draining serosanguinous fluid, report received from Syed CAST and Kole VALENCIA.
--- NOTE | 2024-11-28 13:40 | SUR.PHASEI ---
1340: Pt. AAOx4, vitlas stable, breathing unlabored, no complaint of pain or nausea, dressing to ABD CDI, ZE drain in place, pt. tolerated sips of water well, gave report to Amparo VALENCIA prior to transfer to room, family made aware of transfer.
--- NOTE | 2024-11-28 14:53 | PC.SS ---
Rounding: SX today with Dr. Correa, plan to increase diet, poss [place] home tomorrow
[2024-11-28] MEDS: DOCUSATE SOD 100 MG CAPSULE PO (21:11)
[2024-11-29] VITALS (8 sets, daily range): BP systolic 94–130; BP diastolic 55–91; PULSE 69–88; RESP 18–98; TEMP 36.1–36.6; O2SAT 91–98
[2024-11-29] MEDS: PIPER/TAZO 3.375 GM PREMIX 3.375 GM/50 ML BAG IV ×3 (05:12→21:00)
[2024-11-29 06:04] LABS: Basophils # (Auto) 0.1 Thou/mm3 (0.0-0.2); Basophils % (Auto) 0 % (0-2.5); Eosinophils # (Auto) 0.0 Thou/mm3 (0.0-0.5); Eosinophils % (Auto) 0 % (0-10); Hematocrit 40.5 % (41.0-53.0); Hemoglobin 14.4 g/dL (13.5-16.0); Immature Granulocytes Auto 0.16 Thou/mm3 (0.00-0.00); Lymphocytes # (Auto) 1.3 Thou/mm3 (1.0-4.8); Lymphocytes % (Auto) 6 % (10-50); Mean Corpuscular HGB Conc 35.6 g/dl (31.0-37.0); Mean Corpuscular Hemoglobin 30.4 pg (25.0-35.0); Mean Corpuscular Volume 86 fL (80-100); Monocytes # (Auto) 1.3 Thou/mm3 (0.0-0.8); Monocytes % (Auto) 6 % (0-12); Neutrophils # (Auto) 20.2 Thou/mm3 (1.8-7.7); Neutrophils % (Auto) 88 % (37-80); Nucleated Red Blood Cell # 0.00 Thou/mm3 (0.00-0.00); Nucleated Red Blood Cell % 0 /100 WBC (0); Platelet Count 261 Thou/mm3 (140-440); RDW Standard Deviation 37.0 fL (35.1-43.9); Red Blood Count 4.73 Miln/mm3 (4.50-5.90); White Blood Count 23.0 Thou/mm3 (3.8-10.6)
[2024-11-29 06:29] LABS: Alanine Aminotransferase 89 U/L (10-49); Albumin, Serum 3.9 gm/dL (3.5-5.0); Albumin/Globulin Ratio 1.5 (1.2-2.2); Alkaline Phosphatase 95 U/L (46-116); Anion Gap 8 (7-16); Aspartate Amino Transferase 40 U/L (0-34); BUN/Creatinine Ratio 15 Ratio (12-20); Bilirubin,Total 1.0 mg/dL (0.3-1.2); Blood Urea Nitrogen 12 mg/dL (9-23); Calcium 9.5 mg/dL (8.3-10.6); Calcium (Corrected) 9.6 mg/dL (8.5-10.1); Carbon Dioxide 26.6 mMol/L (20.0-31.0); Chloride 103 mMol/L (98-107); Creatinine (Component) 0.8 mg/dL (0.6-1.3); Estimated Creatinine Clearance 106.7 mL/min (>60); Globulin 2.6 gm/dL (2.3-3.5); Glucose 136 mg/dL (74-106); Magnesium 2.2 mg/dL (1.6-2.6); Osmolality,Calculated 277 (275-295); Potassium 3.5 mMol/L (3.4-5.1); Sodium 138 mMol/L (136-145); Total Protein 6.5 gm/dL (5.7-8.2); eGFR > 60 See Note
[2024-11-29] MEDS: DOCUSATE SOD 100 MG CAPSULE PO (08:38)
--- NOTE | 2024-11-29 09:32 | PC.SS ---
Follow up note: Advance diet and if ok with Dr. Correa pt will d/c home today.
--- NOTE | 2024-11-29 10:14 | ESPR_ITS ---
<Statement entered by Josh Mace MD - 11/29/24 17:11> Patient was seen and examined at bedside. I agree on the assessment and plan on this note as documented by resident Rodolfo Cameron DO PGY1. 54-year-old male with past medical history as below admitted for acute cholecystitis, patient did have elevated white count. For finding of gangrenous acute calculus cholecystitis patient has ZE drain intact was placed yesterday had about 9 cc drainage since placement. Surgery is following closely will continue IV antibiotics, pending pathology. Continue clear liquid diet, surgery following closely. Case discussed with attending Dr. Radha Matamoros MD PGY-2 Documentation for date of: 11/29/24 Subjective Subjective Interval history: Overnight events: No acute events overnight. Patient was seen and examined at bedside. AM vitals and labs reviewed. Patient has no abdominal pain today. No other acute complaints today. On clear liquid diet. ZE drain in place and intact with 5 cc of serosanguineous drainage. Patient had cholecystectomy yesterday, found to have gangrenous cholecystitis which was removed. Continue Zosyn given gangernous cholecystitis. Diet advanced by general surgery. Review of systems otherwise negative except for what is mentioned above. Exam Vital Signs Temp Pulse Resp BP Pulse Ox O2 Del Method O2 Flow Rate 97.9 F 79 18 100/70 98 Room Air 3 11/29/24 08:00 11/29/24 08:32 11/29/24 08:32 11/29/24 08:00 11/29/24 08:00 11/29/24 08:00 11/28/24 13:13 Narrative Exam Physical Exam: General: Alert, no acute distress. Skin: Warm, dry, intact. Head: Normocephalic, atraumatic. Eye: Normal conjunctiva, PERRL. Cardiovascular: Regular rate and rhythm, no murmur, +S1/S2. Respiratory: Lungs are clear to auscultation, respirations unlabored, no crackles, no wheezing. Gastrointestinal: Soft, nontender, non-distended. No guarding or rebound tenderness. ZE drain in place with 5 cc of drainage. Extremities: No edema, no cyanosis, no clubbing. Neuro: No focal deficits observed. Conversant, moving all extremities. No overt cerebellar signs/incoordination. Psychiatric: Cooperative, appropriate affect. Objective Labs 11/29/24 05:31 11/29/24 05:31 Labs: Laboratory Results - last 24 hr 11/29/24 05:31 WBC 23.0 H RBC 4.73 Hgb 14.4 Hct 40.5 L MCV 86 MCH 30.4 MCHC 35.6 RDW Std Deviation 37.0 Plt Count 261 Neut % (Auto) 88 H Lymph % (Auto) 6 L [place] % (Auto) 6 Eos % (Auto) 0 Baso % (Auto) 0 Neut # (Auto) 20.2 H Lymph # (Auto) 1.3 [place] # (Auto) 1.3 H Eos # (Auto) 0.0 Baso # (Auto) 0.1 Immature Gran # (Auto) 0.16 H Absolute Nucleated RBC 0.00 Immature Gran % 1 H Nucleated RBC % 0 Sodium 138 Potassium 3.5 Chloride 103 Carbon Dioxide 26.6 Anion Gap 8 BUN 12 Creatinine 0.8 Estim Creat Clear Calc 106.7 eGFR > 60 BUN/Creatinine Ratio 15 Glucose 136 H Calculated Osmolality 277 Calcium 9.5 Corrected Calcium 9.6 Magnesium 2.2 Total Bilirubin 1.0 D AST 40 H ALT 89 H Alkaline Phosphatase 95 Total Protein 6.5 Albumin 3.9 Globulin 2.6 Albumin/Globulin Ratio 1.5 Quality Measures Quality Measures VTE prophylaxis Assessment & Plan Assessment Current Active Medications: Generic Name Dose Route Start Last Admin Trade Name Freq PRN Reason Stop Dose Admin Acetaminophen 650 mg 11/27/24 14:25 Acetaminophen 325 Mg Tablet PO 12/27/24 14:24 Q6H PRN Fever >101.5 or pain 1-3 Hydrocodone Bitart/Acetaminophen 1 tab 11/27/24 13:46 11/27/24 23:07 Hydrocodone/Apap 5/325 Tablet PO 12/02/24 13:45 1 tab Q4HR PRN Administration PAIN SCALE 4-6 (Moderate Docusate Sodium 100 mg 11/28/24 21:00 11/29/24 08:38 Docusate Sod 100 Mg Capsule PO 12/28/24 20:59 100 mg BID AWILDA Administration Protocol Piperacillin/Tazobactam/Dextrose 3.375 gm in 50 mls @ 12.5 mls/hr 11/27/24 22:00 11/29/24 05:12 Zosyn IV 12/04/24 21:59 12.5 mls/hr Q8HR AWILDA Administration Morphine Sulfate 2 mg 11/27/24 13:49 11/28/24 08:27 Morphine Sulf Inj 10 Mg/Ml Vial IVP 12/02/24 13:45 2 mg Q4HR PRN Administration PAIN SCALE 7-10 (Severe Ondansetron HCl 4 mg 11/27/24 01:45 11/27/24 21:22 Ondansetron Inj 2 Mg/Ml Inj 2 Ml IV 12/27/24 01:44 4 mg Q4H PRN Administration nausea/vomiting Protocol Plan Mr. Bojorquez is a 54 year old male with a history of HTN and perianal warts who presented to [facility] ED on 11/27 for RUQ and epigastric abdominal pain. The patient was admitted for acute cholecystitis. #Acute calculus cholecystitis, gangrenous #RUQ abdominal pain #s/p cholecystectomy (11/28) Patient had acute onset of RUQ and epigastric abdominal pain that started on 11/23. CT abdomen/pelvis, gallbladder ultrasound, and MRCP were all positive for calculus cholecystitis. General surgery was consulted in ED, who performed laparoscopic cholecystectomy on 11/28. - Low fat diet - Zosyn 3.375 g every 8 hours (11/27--) - Blood cultures collected 11/27, now growth after 48 hours - Acetaminophen, Todd 1 tab every 4 hours as needed, and morphine 2 mg every 4 hours as needed for pain management - General surgery consulted, appreciate recommendations - Zofran 4mg every 4 hours as needed for N/V - ZE drain in place #Primary hypertension Patient has a history of hypertension. He takes a single antihypertensive medication for management of his hypertension. Patient had a blood pressure of 145/82 in ED on initial vitals. - Will continue to monitor, will start on antihypertensive if BP is persistently elevated #Leukocytosis, likely reactive Patient noted to have WBC of 15.4 on admission. Likely reactive to cholecystitis. WBC increased to 23.0 on 11/29, which is likely reactive from the recent surgery. - Will continue to monitor DVT Prophylaxis: SCDs GI Prophylaxis: N/A Bowel: N/A Diet: Low fat diet Ravi: N/A Lines: Peripheral IV Antibiotics: Zosyn (11/27--) Code Status: FULL Reason for Hospitalization: Acute calculus cholecystitis Other Barriers to Discharge: Bowel movement Patient plan of care was discussed with the senior resident Dr. Mace (PGY-2) and attending physician Dr. Samy Cameron, PGY1 Attending Provider Attestation/Addendum I, Radha Pablo DO, attest that I was physically present for the meraz portions of the service and evaluated the patient with the resident and I reviewed and discussed the case with the resident and agree with the resident's findings and plans of care as documented above Patient seen and evaluated this AM. He states that he is feeling well. Pain is well controlled and patient has been ambulating without issue. He denies flatus, BM, fevers, chills, shortness of breath or chest pain. Patient found to have very distended and gangrenous gallbladder. Will continue with abx at this time. Minimal dark serosanguinous output from ZE drain noted. Afebrile otherwise. Tolerating CLD. Diet to be advanced by surgeon.
--- NOTE | 2024-11-29 12:20 | PD.SURPROG ---
Documentation for date of: 11/29/24 Subjective Subjective Narrative: Patient is seen and examined. His pain is improving. He is tolerating clear liquids Exam Vital Signs Temp Pulse Resp BP Pulse Ox O2 Del Method O2 Flow Rate 97.9 F 79 18 100/70 98 Room Air 3 11/29/24 08:00 11/29/24 08:32 11/29/24 08:32 11/29/24 08:00 11/29/24 08:00 11/29/24 08:00 11/28/24 13:13 Constitutional Constitutional: no acute distress Routine Abdominal Exam Comments: Abdomen is soft and minimally distended. Incisions are clean, dry and intact. ZE drain in place and intact with minimal serosanguineous output Assessment & Plan Assessment Additional comments: Postop day #1 status post laparoscopic cholecystectomy Plan Continue IV antibiotics for at least 48 hours as patient had gangrenous cholecystitis. Increase ambulation PROCEDURES: Procedures Laparoscopic cholecystectomy
[2024-11-30] VITALS (8 sets, daily range): BP systolic 91–114; BP diastolic 60–70; PULSE 58–74; RESP 17–96; TEMP 36.1–37; O2SAT 93–98; BMI 29.4
[2024-11-30] MEDS: PIPER/TAZO 3.375 GM PREMIX 3.375 GM/50 ML BAG IV ×3 (05:08→21:31)
[2024-11-30 06:09] LABS: Basophils # (Auto) 0.0 Thou/mm3 (0.0-0.2); Basophils % (Auto) 0 % (0-2.5); Eosinophils # (Auto) 0.0 Thou/mm3 (0.0-0.5); Eosinophils % (Auto) 0 % (0-10); Hematocrit 38.8 % (41.0-53.0); Hemoglobin 13.6 g/dL (13.5-16.0); Immature Granulocytes Auto 0.08 Thou/mm3 (0.00-0.00); Lymphocytes # (Auto) 3.4 Thou/mm3 (1.0-4.8); Lymphocytes % (Auto) 25 % (10-50); Mean Corpuscular HGB Conc 35.1 g/dl (31.0-37.0); Mean Corpuscular Hemoglobin 30.6 pg (25.0-35.0); Mean Corpuscular Volume 87 fL (80-100); Monocytes # (Auto) 1.2 Thou/mm3 (0.0-0.8); Monocytes % (Auto) 9 % (0-12); Neutrophils # (Auto) 8.8 Thou/mm3 (1.8-7.7); Neutrophils % (Auto) 65 % (37-80); Nucleated Red Blood Cell # 0.00 Thou/mm3 (0.00-0.00); Nucleated Red Blood Cell % 0 /100 WBC (0); Platelet Count 230 Thou/mm3 (140-440); RDW Standard Deviation 38.6 fL (35.1-43.9); Red Blood Count 4.44 Miln/mm3 (4.50-5.90); White Blood Count 13.5 Thou/mm3 (3.8-10.6)
[2024-11-30 06:41] LABS: Anion Gap 8 (7-16); BUN/Creatinine Ratio 18 Ratio (12-20); Blood Urea Nitrogen 16 mg/dL (9-23); Carbon Dioxide 29.9 mMol/L (20.0-31.0); Chloride 103 mMol/L (98-107); Creatinine (Component) 0.9 mg/dL (0.6-1.3); Estimated Creatinine Clearance 94.9 mL/min (>60); Potassium 3.4 mMol/L (3.4-5.1); Sodium 141 mMol/L (136-145); eGFR > 60 See Note
[2024-11-30 06:42] LABS: Alanine Aminotransferase 74 U/L (10-49); Albumin, Serum 3.6 gm/dL (3.5-5.0); Albumin/Globulin Ratio 1.5 (1.2-2.2); Alkaline Phosphatase 85 U/L (46-116); Aspartate Amino Transferase 26 U/L (0-34); Bilirubin,Total 0.5 mg/dL (0.3-1.2); Calcium 9.0 mg/dL (8.3-10.6); Calcium (Corrected) 9.3 mg/dL (8.5-10.1); Globulin 2.4 gm/dL (2.3-3.5); Glucose 98 mg/dL (74-106); Magnesium 2.0 mg/dL (1.6-2.6); Osmolality,Calculated 282 (275-295); Total Protein 6.0 gm/dL (5.7-8.2)
--- NOTE | 2024-11-30 11:05 | ESPR_ITS ---
<Statement entered by Josh Mace MD - 11/30/24 17:23> Patient was seen and examined at bedside. I agree on the assessment and plan on this note as documented by resident Gladys Hernandez MD PGY1. 54-year-old male with past medical history as below admitted for acute gangrenous cholecystitis status post cholecystectomy, will continue IV Zosyn, ZE drain in place has minimal drainage, otherwise patient's diet was advanced to low-fat diet by surgery tolerating well, anticipate discharge in the next 24 to 48 hours as per general surgeon. Case discussed with attending Dr. Radha Matamoros MD PGY-2 Documentation for date of: 11/30/24 Subjective Subjective Interval history: No acute events overnight. Patient seen and examined at bedside with her family present. No acute complain, reports feeling well. Patient was advanced to low-fat diet. Having regular bowel movement and passing flatus Vitals are within normal limit. AM labs reviews. Significant for WBC 13.5. Blood culture no growth after 48 hours. ZE drainage 6cc serosanguineous fluid. Continue antibiotic course. Exam Vital Signs Temp Pulse Resp BP Pulse Ox O2 Del Method O2 Flow Rate 97.3 F 74 18 114/70 96 Room Air 3 11/30/24 08:00 11/30/24 09:23 11/30/24 09:23 11/30/24 08:00 11/30/24 08:00 11/30/24 08:00 11/28/24 13:13 Narrative Exam General: Alert, no acute distress. Skin: Warm, dry, intact. Head: Normocephalic, atraumatic. Eye: Normal conjunctiva, PERRL. Cardiovascular: Regular rate and rhythm, no murmur, +S1/S2. Respiratory: Lungs are clear to auscultation, respirations unlabored, no crackles, no wheezing. Gastrointestinal: Soft, nontender, non-distended. No guarding or rebound tenderness. ZE drain in place with 6 cc of drainage. Extremities: No edema, no cyanosis, no clubbing. Neuro: No focal deficits observed. Conversant, moving all extremities. No overt cerebellar signs/incoordination. Psychiatric: Cooperative, appropriate affect. Objective Labs 12/01/24 04:18 12/01/24 04:18 Labs: Laboratory Results - last 24 hr 11/30/24 05:45 WBC 13.5 H D RBC 4.44 L Hgb 13.6 Hct 38.8 L MCV 87 MCH 30.6 MCHC 35.1 RDW Std Deviation 38.6 Plt Count 230 D Neut % (Auto) 65 Lymph % (Auto) 25 [place] % (Auto) 9 Eos % (Auto) 0 Baso % (Auto) 0 Neut # (Auto) 8.8 H Lymph # (Auto) 3.4 [place] # (Auto) 1.2 H Eos # (Auto) 0.0 Baso # (Auto) 0.0 Immature Gran # (Auto) 0.08 H Absolute Nucleated RBC 0.00 Immature Gran % 1 H Nucleated RBC % 0 Sodium 141 Potassium 3.4 Chloride 103 Carbon Dioxide 29.9 Anion Gap 8 BUN 16 Creatinine 0.9 Estim Creat Clear Calc 94.9 eGFR > 60 BUN/Creatinine Ratio 18 Glucose 98 Calculated Osmolality 282 Calcium 9.0 Corrected Calcium 9.3 Magnesium 2.0 Total Bilirubin 0.5 D AST 26 ALT 74 H Alkaline Phosphatase 85 Total Protein 6.0 Albumin 3.6 Globulin 2.4 Albumin/Globulin Ratio 1.5 Quality Measures Quality Measures VTE prophylaxis Assessment & Plan Assessment Current Active Medications: Generic Name Dose Route Start Last Admin Trade Name Freq PRN Reason Stop Dose Admin Acetaminophen 650 mg 11/27/24 14:25 Acetaminophen 325 Mg Tablet PO 12/27/24 14:24 Q6H PRN Fever >101.5 or pain 1-3 Hydrocodone Bitart/Acetaminophen 1 tab 11/27/24 13:46 11/27/24 23:07 Hydrocodone/Apap 5/325 Tablet PO 12/02/24 13:45 1 tab Q4HR PRN Administration PAIN SCALE 4-6 (Moderate Docusate Sodium 100 mg 11/28/24 21:00 11/30/24 09:19 Docusate Sod 100 Mg Capsule PO 12/28/24 20:59 Not Given BID AWILDA Protocol Piperacillin/Tazobactam/Dextrose 3.375 gm in 50 mls @ 12.5 mls/hr 11/27/24 22:00 11/30/24 05:08 Zosyn IV 12/04/24 21:59 12.5 mls/hr Q8HR AWILDA Administration Morphine Sulfate 2 mg 11/27/24 13:49 11/28/24 08:27 Morphine Sulf Inj 10 Mg/Ml Vial IVP 12/02/24 13:45 2 mg Q4HR PRN Administration PAIN SCALE 7-10 (Severe Ondansetron HCl 4 mg 11/27/24 01:45 11/27/24 21:22 Ondansetron Inj 2 Mg/Ml Inj 2 Ml IV 12/27/24 01:44 4 mg Q4H PRN Administration nausea/vomiting Protocol Plan Mr. Bojorquez is a 54 year old male with a history of HTN and perianal warts who presented to [facility] ED on 11/27 for RUQ and epigastric abdominal pain. The patient was admitted for acute cholecystitis. #Acute gangrenous cholecystitis #RUQ abdominal pain #s/p cholecystectomy (11/28) Patient had acute onset of RUQ and epigastric abdominal pain that started on 11/23. CT abdomen/pelvis, gallbladder ultrasound, and MRCP were all positive for calculus cholecystitis. General surgery was consulted in ED, who performed laparoscopic cholecystectomy on 11/28. - Blood cultures collected 11/27, now growth after 48 hours Plan - Low fat diet - Zosyn 3.375 g every 8 hours (11/27-) - Acetaminophen, [place] 1 tab every 4 hours as needed, and morphine 2 mg every 4 hours as needed for pain management - General surgery consulted, appreciate recommendations - Zofran 4mg every 4 hours as needed for N/V - ZE drain in place #Primary hypertension Patient has a history of hypertension. He takes a single antihypertensive medication for management of his hypertension. Patient had a blood pressure of 145/82 in ED on initial vitals. Plan - Will continue to monitor, will start on antihypertensive if BP is persistently elevated #Leukocytosis, likely reactive (resolving) Patient noted to have WBC of 15.4 on admission. Likely reactive to cholecystitis. WBC increased to 23.0 on 11/29, which is likely reactive from the recent surgery. Plan - Will continue to monitor Hospital management: Lines: peripheral IV Diet: Low-fat diet GI prophylaxis: None Disposition: Acute calculus cholecystitis IV antibiotic management CODE STATUS: Full code Patient seen and assessed under supervision of attending physician Dr Pablo and discuss with senior resident Dr. Mace PGY-2 Gladys Hernandez MD PGY-1, Internal Medicine Attending Provider Attestation/Addendum Eleanor, Radha Pablo, DO, attest that I was physically present for the meraz portions of the service and evaluated the patient with the resident and I reviewed and discussed the case with the resident and agree with the resident's findings and plans of care as documented above Patient seen and evaluated this AM. He states he is feeling well and has not been requiring any pain medication. Patient has been ambulating at bedside. Minimal output noted from ZE drain. Continue with IV abx. Anticipate DC within next 24hrs. Tolerating diet without issue.
--- NOTE | 2024-11-30 14:28 | PC.SS ---
Rounding note: on IV antibiotics, d/c tomorrow.
[2024-11-30] MEDS: DOCUSATE SOD 100 MG CAPSULE PO (21:31)
[2024-12-01] VITALS: BP 99/61; PULSE 62; RESP 18; TEMP 36.1; O2SAT 96
[2024-12-01 04:00] VITALS: BP 109/79; PULSE 60; RESP 18; TEMP 36.6; O2SAT 96
[2024-12-01] MEDS: PIPER/TAZO 3.375 GM PREMIX 3.375 GM/50 ML BAG IV ×2 (05:15→13:29)
[2024-12-01 05:25] LABS: Basophils # (Auto) 0.0 Thou/mm3 (0.0-0.2); Basophils % (Auto) 0 % (0-2.5); Eosinophils # (Auto) 0.1 Thou/mm3 (0.0-0.5); Eosinophils % (Auto) 1 % (0-10); Hematocrit 40.0 % (41.0-53.0); Hemoglobin 13.9 g/dL (13.5-16.0); Immature Granulocytes Auto 0.10 Thou/mm3 (0.00-0.00); Lymphocytes # (Auto) 4.0 Thou/mm3 (1.0-4.8); Lymphocytes % (Auto) 41 % (10-50); Mean Corpuscular HGB Conc 34.8 g/dl (31.0-37.0); Mean Corpuscular Hemoglobin 30.7 pg (25.0-35.0); Mean Corpuscular Volume 88 fL (80-100); Monocytes # (Auto) 0.8 Thou/mm3 (0.0-0.8); Monocytes % (Auto) 8 % (0-12); Neutrophils # (Auto) 4.7 Thou/mm3 (1.8-7.7); Neutrophils % (Auto) 48 % (37-80); Nucleated Red Blood Cell # 0.00 Thou/mm3 (0.00-0.00); Nucleated Red Blood Cell % 0 /100 WBC (0); Platelet Count 280 Thou/mm3 (140-440); RDW Standard Deviation 38.8 fL (35.1-43.9); Red Blood Count 4.53 Miln/mm3 (4.50-5.90); White Blood Count 9.7 Thou/mm3 (3.8-10.6)
[2024-12-01 05:58] LABS: Alanine Aminotransferase 67 U/L (10-49); Albumin, Serum 3.5 gm/dL (3.5-5.0); Albumin/Globulin Ratio 1.5 (1.2-2.2); Alkaline Phosphatase 83 U/L (46-116); Anion Gap 12 (7-16); Aspartate Amino Transferase 23 U/L (0-34); BUN/Creatinine Ratio 18 Ratio (12-20); Bilirubin,Total 0.4 mg/dL (0.3-1.2); Blood Urea Nitrogen 14 mg/dL (9-23); Calcium 9.2 mg/dL (8.3-10.6); Calcium (Corrected) 9.6 mg/dL (8.5-10.1); Carbon Dioxide 27.2 mMol/L (20.0-31.0); Chloride 104 mMol/L (98-107); Creatinine (Component) 0.8 mg/dL (0.6-1.3); Estimated Creatinine Clearance 106.7 mL/min (>60); Globulin 2.4 gm/dL (2.3-3.5); Glucose 89 mg/dL (74-106); Magnesium 2.0 mg/dL (1.6-2.6); Osmolality,Calculated 284 (275-295); Potassium 3.4 mMol/L (3.4-5.1); Sodium 143 mMol/L (136-145); Total Protein 5.9 gm/dL (5.7-8.2); eGFR > 60 See Note
[2024-12-01 08:00] VITALS: BP 117/84; PULSE 64; RESP 18; TEMP 36.4; O2SAT 96
[2024-12-01] MEDS: DOCUSATE SOD 100 MG CAPSULE PO (09:44)
[2024-12-01 12:00] VITALS: BP 107/64; PULSE 66; RESP 14; TEMP 36.1; O2SAT 96
--- NOTE | 2024-12-01 12:47 | PD.SURPROG ---
Documentation for date of: 12/01/24 Subjective Subjective Narrative: Pt is seen and examined. His pain has improved. He is eating and tolerating diet well and having bowel movements. Exam Vital Signs Temp Pulse Resp BP Pulse Ox O2 Del Method O2 Flow Rate 96.9 F 66 14 107/64 96 Room Air 3 12/01/24 12:00 12/01/24 12:00 12/01/24 12:00 12/01/24 12:00 12/01/24 12:00 12/01/24 12:00 11/28/24 13:13 Constitutional Constitutional: no acute distress Routine Abdominal Exam Abdominal: Present soft, normoactive bowel sounds and drain (Minimal output); Absent tenderness or distended Assessment & Plan Assessment Additional comments: POD#3 s/p lap puja, WBC is normal Plan May discharge home on oral antibiotics for one week. PROCEDURES: Procedures Laparoscopic cholecystectomy
--- NOTE | 2024-12-01 12:54 | ESDS_ITS ---
<Statement entered by Radha Pablo DO - 12/02/24 07:58> I, Radha Pablo DO, attest that I was physically present for the meraz portions of the service and evaluated the patient with the resident and I reviewed and discussed the case with the resident and agree with the resident's findings and plans of care as documented above <Statement entered by Josh Mace MD - 12/01/24 17:01> Patient was seen and examined by me personally. I have reviewed the below documentation by the team resident and agree with its findings. Discharge plan was discussed with the attending, Dr. Radha Pablo DO 55-year-old male with past medical history of hypertension and perianal warts admitted for cholecystitis gallbladder ultrasound. Underwent laparoscopic chol ecystectomy was found to have gangrenous gallbladder had ZE drain placed, patient received IV antibiotics for the hospitalization course, diet was advanced by general surgeon patient tolerated well, did require IV pain medication for left hospitalization course, postop pain was managed and further plan is to discharge home on 1 week of ciprofloxacin. Patient cleared by general surgery for discharge, stable. Responded well to hospital treatment Josh Mace MD Internal Medicine, PGY-2 Planned Discharge Date 12/01/24 DS: Providers Provider Date of admission: 11/27/24 13:20 Primary care physician: Physician No Primary/Family Admitting Provider: Jenny Brooks MD Attending Provider on Admission: Radha Pablo DO Consults: 11/27/24 12:29 Consult to General Surgery Stat Comment: Consulting Provider: Alicia Correa Attending Provider on DC: Radha Pablo DO Discharging Provider: RESIDENT Paulo Anticipated date of discharge: 12/01/24 DS: Diagnosis Problem List Completed Was Problem List Reviewed/Reconciled?: Yes Hospital Course Hospital Course Hospital course: Reason for hospitalization:?Acute gangrenous cholecystitis Summary: This patient is a 55-year-old male with history of hypertension and perianal warts who presented to [facility] ED on 11/27 for right upper quadrant and epigastric abdominal pain. The patient is admitted for acute cholecystitis. Initial vitals were significant for blood pressure of 145/82 and labs were significant for WBC 50.[address] abdomen pelvis, gallbladder ultrasound, and MRCP all showed acute calculus cholecystitis, prompting consult to general surgery. Dr. Correa, general surgery, evaluated the patient and determined that the patient needed laparoscopic cholecystectomy. The patient was started on Zosyn during the interim. This procedure was performed on 11/28, and it was found that the gallbladder was tense, thick walled, and gangrenous in appearance. The result, the patient was kept in the hospital until 12/01 to complete a course of IV antibiotics per general surgery recommendations. On 11/21, patient's vitals and labs were stable with minimal drainage from ZE drain. Drain was pulled out by general surgery and patient was discharged with ciprofloxacin 1 week course and ibuprofen and Staley as needed for pain control. Imaging: CT abdomen/pelvis 11/26/2024: Gallstones, gallbladder wall appears thickened. Gallbladder ultrasound 11/26/2024: Acute calculus cholecystitis. MRCP 11/27/2024: Acute calculus cholecystitis. Discharge Recommendations: - Follow up with PCP within 1 week of discharge - Continue rest of medications as previously prescribed - Return to the ED or call EMS if symptoms return and/or worsen - Continue ciprofloxacin 500 mg twice daily for 7 days total to complete course of antibiotics - You prescribed ibuprofen 600 mg for pain scale 4-6 and hydrocodone acetaminophen for pain scale of 7-10, please take as needed for pain If you don't have a PCP, you can make an appointment at the [facility]: [address] [place], [place] [id number] Hospital Diagnoses: #Acute gangrenous cholecystitis #Status post cholecystectomy 11/28 #Primary hypertension #Leukocytosis, likely reactive Patient plan of care was discussed with the senior resident Dr. Mace (PGY-2) and attending physician Dr. Samy Cameron, PGY-1 Status at Discharge Functional status at discharge: independent ambulation Overall status at discharge: patient is back to baseline Time Spent with Patient Time attestation: Total time spent providing and/or coordinating discharge services: Time spent: Greater than 30 minutes Exam Vital Signs Temp Pulse Resp BP Pulse Ox O2 Del Method O2 Flow Rate 96.9 F 66 14 107/64 96 Room Air 3 12/01/24 12:12/01/24 12:12/01/24 12:12/01/24 12:12/01/24 12:12/01/24 12:00 11/28/24 13:13 Narrative Exam Physical Exam: General: Alert, no acute distress. Skin: Warm, dry, intact. Head: Normocephalic, atraumatic. Eye: Normal conjunctiva, PERRL. Throat: Oral mucosa moist. No obvious lesions in oropharynx. Cardiovascular: Regular rate and rhythm, no murmur, +S1/S2. Respiratory: Lungs are clear to auscultation, respirations unlabored, no crackles, no wheezing. Gastrointestinal: Soft, nontender, non-distended. No guarding or rebound tenderness. Extremities: No edema, no cyanosis, no clubbing. 2+ radial pulse bilaterally, 2+ pedal pulse bilaterally. Neuro: No focal deficits observed. Conversant, moving all extremities. No overt cerebellar signs/incoordination. Psychiatric: Cooperative, appropriate affect. Discharge Plan Plan Patient Disposition: HOME (Self Care) Patient condition on transfer: Stable Care Plan Goals: - Continue Ciprofloxacin for one week to complete antibiotic treatment - Use pain medications as prescribed below per pain scale - [facility] in 1 to 2 weeks. Call [phone] to make an appointment Address: [facility], [address], [address], [place], [address] - Return to ED if symptoms return or worsen. Prescriptions/Referrals Prescriptions/Med Rec: New docusate sodium 100 mg Capsule 100 mg PO BID Qty: 20 0RF hydrocodone-acetaminophen 5-325 mg Tablet 1 tab PO Q4HR MDD 4 PRN (Reason: pain (scale score 7-10)) Qty: 7 0RF ibuprofen 600 mg tablet 600 mg PO Q8H PRN (Reason: pain (scale score 4-6)) Qty: 15 0RF ciprofloxacin HCl 500 mg tablet 500 mg PO BID Qty: 14 0RF Referrals: Alicia Correa MD [Physician] - No Primary/Family,Physician [Primary Care Provider] - Rodolfo Cameron STUDENT RE [Resident] - Patient/Caregiver Discharge Instructions Discharge Activity: activity as tolerated Education Materials: What Are Gallstones, Cholecystectomy, Preventing Surgical Site Infections Print Language: Czech Activity Restrictions/Additional Instructions: May shower in 24 hours. Avoid lifting, straining, pulling or pushing for 4 weeks. May take over the counter laxatives if no bowel movements in 2 days[address] Follow up with Dr. Correa in 2 weeks. Please call [phone] for an appointment. Stand Alone Forms: Elsa Award Info., Patient Portal Info Letter Discharge Order Discharge Orders: Discharge (Routine); Ordered 12/01/24 Ordered By: Josh Mace Quality Discharge Quality Measures VTE prophylaxis
== END 2024-12-01 15:21 | disposition home or self-care (01) | DRG 419 ==
LOC: SERX 11-27 13:30 → SERHOLD 11-27 13:37 → S3NX 11-27 16:47 → SERHOLD 11-28 16:28 → S3NX 11-28 16:29
PROVIDERS: Physician Assistant; Surgery; Admitting Provider Student in an Organized Health Care Education/Training Program; Emergency Provider Emergency Medicine; Visit Provider Internal Medicine
PROC: 0FT44ZZ Resection of Gallbladder, Percutaneous Endoscopic Approach (ICD-10-PCS; CPT 47562; principal; 2024-11-28 13:30)
DX: K80.00 Calculus of gallbladder with acute cholecystitis without obstruction (principal); I10 Essential (primary) hypertension; K82.A1 Gangrene of gallbladder in cholecystitis
CPT/HCPCS: 36415; 74176; 74181; 76705; 80053; 80307; 80320; 81001; 83605; 83690; 83735; 84145; 85025; 85610; 85730; 87040; 93225; 96361; 96365; 96366; 96375; 96376; 99284; A4217; A4649; J0131; J0694; J1100; J1885; J2270; J2405; J2543; J2704; J3010; J3490; J7120; A9270; G0480

== ENCOUNTER 2024-12-06 10:21 | Outpatient (AMB) | payer BC, SELFPAY ==
[2024-12-06 10:33] VITALS: BP 118/77; PULSE 77; RESP 19; TEMP 36.4; O2SAT 97
--- NOTE | 2024-12-06 10:33 | PD.RESCLINIC ---
Vital Signs 12/06/24 10:33 Weight 81.817 kg Weight Measurement Method Standing Scale BP 118/77 Blood Pressure Source Automatic Cuff Blood Pressure Location Right Upper Arm Position Sitting Respiration 19 Pulse 77 Pulse Source Monitor Temp 97.5 F Temp Source Oral Pulse Oximetry (%) 97 Oxygen Delivery Method Room Air Allergies/Meds Allergies & Medications Allergies No Known Allergies Allergy (Verified 12/06/24 10:34) Medication Reconciliation ciprofloxacin HCl 500 mg tablet 500 mg PO BID #14 tabs 12/01/24 [Rx Confirmed 12/06/24] docusate sodium 100 mg capsule 100 mg PO BID #20 caps 12/01/24 [Rx Confirmed 12/06/24] hydrocodone 5 mg-acetaminophen 325 mg tablet 1 tab PO Q4HR PRN pain (scale score 7-10) #7 tabs 12/01/24 [Rx Confirmed 12/06/24] ibuprofen 600 mg tablet 600 mg PO Q8H PRN pain (scale score 4-6) #15 tabs 12/01/24 [Rx Confirmed 12/06/24] benazepril 10 mg tablet 10 mg PO QDAY hypertension #30 tabs 12/06/24 [Rx] cetirizine 10 mg tablet 10 mg PO QDAY #30 tabs 12/06/24 [Rx] MA Intake Visit Data Collection New Patient or Established: Established Patient (seen at [facility] within 3 years) Seen by Clinical Staff ONLY (RN/MA): No Pain Present Currently: No Pain scale:: 0 Do You Feel Safe at Home: Yes Authorities Contacted: N/A Smoking Status Smoking Status: Never smoker Immunization / Flu Flu Vaccine in the Last 12 Months: No Flu Vaccine Exclusion Criteria: No Exclusion Criteria Past Medical History Past Medical History NEUROLOGIC: Negative Neurological Disorders or Seizures CARDIAC: Positive Cardiac Disorders and Hypertension; Negative Congestive Heart Failure RESPIRATORY: Negative Chronic Obstructive Pulmonary Disease (COPD) or Asthma GASTROINTESTINAL: Positive Gastrointestinal Disorders and Hemorrhoids; Negative Hepatitis or Colorectal Cancer GENITOURINARY: Negative Genitourinary Disorders, Renal Disease or Prostate Cancer REPRODUCTIVE: Negative Fibroids or Testicular Cancer MUSCULOSKELETAL: Negative Bone Cancer or Carpal Tunnel Syndrome ENDOCRINE: Negative Endocrine Disorders, Diabetes Mellitus Type 1 or Diabetes Mellitus Type 2 HEMATOLOGIC: Negative Blood Disorders or Sickle Cell Disease OTHER HISTORY: Positive Chicken Pox, Measles and Mumps; Negative Hospitalization, Shingles, Falls, Blood Transfusions, Anesthesia Reactions, Organ Transplant, MRSA, VRSA, Cancer, Colorectal Cancer, Lung Cancer, Prostate Cancer or Testicular Cancer Family History FAMILY HISTORY: Positive Family Cardiac Disorders and Family Cancer; Negative Family Psychiatric Problems, Family Respiratory Disorders, Family Gastrointestinal Problems, Family Surgery or Family Anesthesia Reaction Surgical History SURGICAL: Positive Abdominal Surgery; Negative Nephrectomy, Transurethral Resection, Joint Replacement, Amputation, Open Reduction Internal Fixation, Arthroscopy, Brain Shunt, Vasectomy or Organ Transplant Social History SMOKING STATUS: Smoking status: Never smoker ALCOHOL: Alcohol Intake: Current ALCOHOL FREQUENCY: Alcohol Intake Frequency: holidays/special occasions only HOUSING: Housing: House LIVES WITH: Lives With: Family Patient Portal Questionaires Social History Living Situation History Housing: House Tobacco History Smoking Status: Never smoker Alcohol History Alcohol Intake: Current Alcohol Intake Frequency: holidays/special occasions only Domestic Abuse History Do You Feel Safe at Home: Yes Review of Systems Report any current symptoms Only answer those that you have currently: Past Medical History Past Medical History Have you ever been diagnosed with any of the following: Neurological Problems Seizures: No Cardiology Problems Congestive Heart Failure: No Hypertension: Yes Respiratory Problems Chronic Obstructive Pulmonary Disease (COPD): No Asthma: No Stomache/Intestinal Problems Hepatitis: No Colorectal Cancer: No Hemorrhoids: Yes Genital/Urinary Problems Renal Disease: No Prostate Cancer: No Reproductive Problems Fibroids: No Testicular Cancer: No Musculoskeletal Problems Bone Cancer: No Carpal Tunnel Syndrome: No Endocrine Problems Diabetes Mellitus Type 1: No Diabetes Mellitus Type 2: No Blood Problems Sickle Cell Disease: No Other Problems Hospitalization: No Shingles: No Falls: No Blood Transfusions: No Anesthesia Reactions: No Organ Transplant: No MRSA: No VRSA: No Chicken Pox: Yes Measles: Yes Mumps: Yes Cancer: No Lung Cancer: No History of Present Illness HPI Narrative 10 mg benazapril nora, 3 boys 1 girl, lives with family. independent of adls and iadls works as cook at the [employer] incisions healing well, minimal pain, continues on abx 6 month follow up in 6 months with fasted labs, a1c and lipids. reccomend shingles vaccine will send refills for cetirazine for seasonal allergies and benazapril 10mg for htn very well controlled Office Procedures [facility] Level of Care Nursing/Assessment Patient Status: Established Patient Nursing Assessment/Reassessment: Medication Reconciliation, Update PMH in EMR and Vital Signs Coordination of Care: Complex Care and Chronic Disease 1-5, Education Complex Pt/Fam, Results/Orders obtained and Staff clarify orders Established Patient Charge Established Patient Point Assignment: 90 Established Patient Point Charge: EP Level 3 (80-115)
== END 2024-12-06 11:32 | disposition home or self-care (01) ==
LOC: HODAHC 10:21
PROVIDERS: Supervising Provider Internal Medicine
DX: I10 Essential (primary) hypertension (principal); J30.2 Other seasonal allergic rhinitis; Z76.0 Encounter for issue of repeat prescription
CPT/HCPCS: 99213; G0463